=== PATIENT | male | born 1960 | race Caucasian/White ===

== ENCOUNTER → 2017-05-24 | Outpatient (CLI) | payer BC ==
[~2017-05-24] MED LIST: DICL50TA3 PO; GABA300C3 PO; HYDROCODONE PO; LISI10TA PO; LOPE2 PO; MERC50TA PO; PENT500C2 PO
--- NOTE | 2017-05-25 08:56 | RSPPFT ---
DATE OF PROCEDURE: 05/24/17 COMMENTS: VOLUMES DYNAMIC: FVC and FEV1 mildly reduced. STATIC: TLC and FRC mildly reduced; RV low normal. FLOWS: FEV1% normal; FEF 25-75 normal. DIFFUSION: Normal. FLOW VOLUME LOOP: Restrictive configuration. IMPRESSION: Mild restrictive ventilatory defect with normal diffusion and no response to bronchodilator.
== END ==
LOC: HRSP 07:56
PROVIDERS: ATTEND Internal Medicine
DX: R05 Cough (principal)
CPT/HCPCS: 94060; 94618; 94726; 94729; 95012